=== PATIENT | female | born 1975 | race Hispanic/Latino ===

== ENCOUNTER 2024-10-18 16:05 | Emergency (ER) | payer SELFPAY ==
[~2024-10-18] VITALS: Ht 149.9 cm; Wt 64.4 kg
[2024-10-18 16:53] LABS: URINE BILIRUBIN - DIPSTICK Negative (NEGATIVE); URINE BLOOD DIPSTICK Small (NEGATIVE); URINE GLUCOSE - DIPSTICK Negative (NEGATIVE); URINE KETONE Negative (NEGATIVE); URINE LEUK ESTERASE Negative (NEGATIVE); URINE NITRITE - DIPSTICK Negative (Negative); URINE PROTEIN - DIPSTICK Negative (NEG-TRACE); URINE SPECIFIC GRAVITY 1.025; URINE UROBILINOGEN - DIPSTICK 0.2 E.U./dL (0.2)
[2024-10-18 16:57] VITALS: BP 134/78
[2024-10-18 16:57] LABS: URINE COLOR Yellow
[2024-10-18 17:00] VITALS: BP 146/87
[2024-10-18 17:02] LABS: URINE MUCUS FEW hpf (NONE-FEW); URINE SQUAMOUS EPITHELIAL CELL FEW EPI/hpf (0-FEW)
[2024-10-18 17:15] LABS: BASO% 0.2 % (0-3); EOS% 1.1 % (0-8); HEMATOCRIT 42.9 % (37.0-47.0); HEMOGLOBIN 13.6 g/dl (12.0-16.0); IMMATURE GRANULOCYTES 0.1 % (0.0-5.0); LYMPH% 30.9 % (15-41); MEAN CELL VOLUME 80.8 fL CALC (80.0-100.0); MEAN CORPUSCULAR HGB 25.6 pG CALC (26.0-32.0); MEAN CORPUSCULAR HGB CONC 31.7 g/dL CAL (32.0-36.0); MONO% 5.6 % (2-13); NEUT# 5.51 thou/uL (2.00-7.15); NEUT% 62.1 % (42-76); RED BLOOD COUNT 5.31 mill/uL (4.20-5.60); RED CELL DISTRI WIDTH 14.4 % (11.5-15.5)
[2024-10-18 17:27] LABS: ALBUMIN 4.3 g/dL (3.2-5.0); BILIRUBIN, TOTAL 0.4 mg/dL (0.02-1.3); CREATININE 0.7 mg/dL (0.5-1.0); POTASSIUM 3.9 mmol/l (3.5-5.1); TOTAL PROTEIN 8.1 g/dL (6.3-8.2)
[2024-10-18] MEDS ORDERED: KETOROLAC TROMETHAMINE 30 MG/ML SDV IV ONE (19:00)
[2024-10-18] MEDS ORDERED: Pantoprazole Sodium 40 MG VIAL (Protonix) IV STA (20:14)
[2024-10-18] MEDS ORDERED: PROTONIX40 M2 PO (20:15)
[2024-10-18 20:24] VITALS: BP 146/87
== END 2024-10-18 20:24 | disposition home or self-care (01) | DRG 392 ==
LOC: ED 16:05
PROVIDERS: Nurse Practitioner
DX: R10.11 Right upper quadrant pain (principal)
CPT/HCPCS: J2470; Q9967